=== PATIENT | female | born 1985 | race Caucasian/White ===

== ENCOUNTER → 2018-07-01 | Outpatient (CLI) | payer OTHER ==
[~2018-07-01] MED LIST: ALBU90OI INH; AMOX500 PO; ANTIDEPRESSANT; BUPR100; BUPR75; CIPR500 PO; CRUTCH3 USE; CYCL10 PO; Compazine10 MG PO; DICYCLOMINE PO; DULO30 PO; EXCEDRINE MIGRAINE; FROVA; HYDACE5 PO; HYDCOR10 PO; HYDCOR20 PO; IBUP200; ISODICACE; KETO10 PO; LEVSOD100 PO; LEVSOD125 PO; LEVSOD175 PO; LEVSOD25; MECL25 PO; METO10 PO; METO100ER; METO100ER PO; METPHE20ER PO; METPHE5 PO; NAPR375 PO; NAPR500 PO; NAPR550 PO; NORT10 PO; OMEP20ER PO; ONDA4ODT MM; OSEL75CA PO; OXYACE5T PO; PENVK500 PO; PHENA100 PO; PROACE100 PO; PROM25 PO; PROP120ER; PROP120ER PO; PROP50; RXNAPNA550 PO; RXONDA4ODT MM; RXPROACE PO; RXPROM25 PO; RXTRAM50 PO; SERT100 PO; SULTRIDS PO; SUMA25 PO; Seasonique 0.11 EACH PO; Synthroid150 MCG PO; TRAM50 PO; TRAZ100; Ultram50 MG PO; Veetids 500500 MG PO; Zofran Odt4 MG SL
[2018-07-05 15:06] LABS: HPV 16 Negative (Negative); HPV 18 Negative (Negative); HPV OTHER HR TYPES Negative (Negative)
== END | disposition home or self-care (01) ==
LOC: LAB SHORT 18:33 → LAB 18:33
PROVIDERS: Nurse Practitioner Women's Health
DX: Z12.4 Encounter for screening for malignant neoplasm of cervix (principal); Z91.89 Other specified personal risk factors, not elsewhere classified
CPT/HCPCS: 87624; G0123

== ENCOUNTER 2023-06-15 18:25 | Emergency (ER) | payer BC ==
[~2023-06-15] VITALS: Ht 160 cm; Wt 91.2 kg
[~2023-06-15 18:25] MED LIST changes: -LEVOTHYROXINE75 MC9 PO
[2023-06-15 19:44] LABS: Hematocrit 30.2 % (33.0-51.0); Hemoglobin 9.1 g/dL (11.5-16.0); Mean Corpuscular HGB Conc 30.1 g/dL (31.5-36.5); Mean Corpuscular Volume 83 fL (80-100); Mean Platelet Volume 9.1 fL (9.1-12.4); Platelet Count 357 K/mm3 (150-400); RDW Coefficient Variation 19.3 % (11.7-14.2); RDW Standard Deviation 58.8 fL (35.1-46.3); Red Blood Cell Count 3.64 M/mm3 (3.80-5.20); White Blood Cell Count 10.28 K/mm3 (4.00-11.30)
[2023-06-15 20:02] LABS: BASOPHILS PERCENT MAN 1 % (0-2); EOSINOPHILS ABSOLUTE MAN 0.51 K/mm3 (0.00-0.68); EOSINOPHILS PERCENT MAN 5 % (0-6); LYMPHOCYTES ABSOLUTE MAN 4.42 K/mm3 (0.84-5.20); LYMPHOCYTES PERCENT MAN 43 % (21-46); MONOCYTES ABSOLUTE MAN 0.41 K/mm3 (0.16-1.47); MONOCYTES PERCENT MAN 4 % (4-13); MYELOCYTE PERCENT MAN 1 % (0-0); NEUTROPHILS ABSOLUTE MAN 4.72 K/mm3 (1.96-9.15); SEG NEUTROPHILS PERCENT MAN 46 % (41-73); TOTAL CELLS COUNTED 100
[2023-06-15 20:54] LABS: Albumin, Blood 3.7 g/dL (3.4-5.0); Albumin/Globulin Ratio 0.9 (0.8-1.8); Bilirubin, Total 0.2 mg/dL (0.1-1.0); Bun/Creatinine Ratio 8.2 (12.0-20.0); Creatinine, Blood 0.98 mg/dL (0.40-1.00); Potassium, Blood 3.8 mmol/L (3.5-5.5); Thyroid Stimulating Hormone 85.9 uIU/mL (0.360-4.800); Total Protein, Blood 7.7 g/dL (6.4-8.2)
[2023-06-15] MEDS ORDERED: LEVOTHYROXINE75 MC9 PO (21:09)
[2023-06-15 21:10] LABS: Free Thyroxine 0.15 ng/dL (0.70-1.60); Magnesium, Blood 2.1 mg/dL (1.6-2.4)
[2023-06-15] MEDS ORDERED: NS 1,000 ML IV SCH (21:10)
[2023-06-15] MEDS ORDERED: Levothyroxine Sodium 100 MCG Vial IV ONE (21:10)
[2023-06-15] MEDS ORDERED: Sod Ferric Gluc Complx/Sucrose 125 MG in NS 100 ML IV ONE (22:05)
[2023-06-15 22:30] VITALS: BP 94/74
[2023-06-17 11:09] LABS: FERRITIN 6 ng/mL (15-150)
[2023-06-17 22:10] LABS: IRON BIND.CAP.(TIBC) 401 ug/dL (250-450); IRON SATURATION 5 % (15-55); IRON, SERUM 20 ug/dL (27-159); UIBC 381 ug/dL (131-425)
== END 2023-06-15 23:37 | disposition home or self-care (01) ==
LOC: ER 18:25
PROVIDERS: Physician Assistant; Student in an Organized Health Care Education/Training Program
DX: E03.9 Hypothyroidism, unspecified (principal); D64.9 Anemia, unspecified; F90.9 Attention-deficit hyperactivity disorder, unspecified type; F17.210 Nicotine dependence, cigarettes, uncomplicated; Z79.899 Other long term (current) drug therapy; Z79.890 Hormone replacement therapy; D50.9 Iron deficiency anemia, unspecified; R53.83 Other fatigue
CPT/HCPCS: 71046; 80053; 82728; 83540; 83550; 83735; 84439; 84443; 85025; 93005; 93010; 96361; 96365; 96375; 99285-25; J2916; J7030

== ENCOUNTER → 2023-06-15 | Outpatient (CLI) | payer OTHER ==
[~2023-06-15] MED LIST changes: +BENZ100A PO; +GUAI600T33 PO; +LEVOTHYROXINE75 MC9 PO; +ONDA4 PO
[2023-06-15 15:44] LABS: BASOPHILS ABSOLUTE AUTO 0.12 K/mm3 (0.00-0.23); BASOPHILS PERCENT AUTO 1 % (0-2); EOSINOPHILS ABSOLUTE AUTO 0.28 K/mm3 (0.00-0.68); EOSINOPHILS PERCENT AUTO 3 % (0-6); Hematocrit 32.3 % (33.0-51.0); Hemoglobin 9.7 g/dL (11.5-16.0); IMMATURE GRAN ABSOLUTE AUTO 0.05 K/mm3 (0.00-0.10); IMMATURE GRAN PERCENT AUTO 1 % (0-1); LYMPHOCYTES ABSOLUTE AUTO 3.26 K/mm3 (0.84-5.20); LYMPHOCYTES PERCENT AUTO 38 % (21-46); MONOCYTES ABSOLUTE AUTO 0.39 K/mm3 (0.16-1.47); MONOCYTES PERCENT AUTO 5 % (4-13); Mean Corpuscular HGB 24.9 pg (26.0-34.0); Mean Corpuscular Volume 83 fL (80-100); Mean Platelet Volume 9.4 fL (9.1-12.4); NEUTROPHILS ABSOLUTE AUTO 4.39 K/mm3 (1.96-9.15); NEUTROPHILS PERCENT AUTO 52 % (41-73); Platelet Count 413 K/mm3 (150-400); RDW Coefficient Variation 19.6 % (11.7-14.2); RDW Standard Deviation 58.9 fL (35.1-46.3); Red Blood Cell Count 3.89 M/mm3 (3.80-5.20); White Blood Cell Count 8.49 K/mm3 (4.00-11.30)
[2023-06-15 16:19] LABS: Free Thyroxine 0.19 ng/dL (0.70-1.60)
[2023-06-15 16:46] LABS: Thyroid Stimulating Hormone 94.1 uIU/mL (0.360-4.800)
[2023-06-16 12:38] LABS: Albumin, Blood 4.3 g/dL (3.4-5.0); Bilirubin, Total 0.3 mg/dL (0.1-1.0); Bun/Creatinine Ratio 7.9 (12.0-20.0); Calcium, Blood 9.2 mg/dL (8.5-10.1); Creatinine, Blood 1.01 mg/dL (0.40-1.00); Globulin, Blood 4.1 g/dL (2.2-4.0); Potassium, Blood 3.8 mmol/L (3.5-5.5); Total Protein, Blood 8.4 g/dL (6.4-8.2)
== END | disposition home or self-care (01) ==
LOC: LAB SHORT 12:40
PROVIDERS: Family Medicine
DX: E03.9 Hypothyroidism, unspecified (principal); D50.9 Iron deficiency anemia, unspecified; R53.83 Other fatigue
CPT/HCPCS: 80053; 84439; 84443; 85025

== ENCOUNTER 2023-06-27 11:37 | Emergency (ER) | payer BC ==
[~2023-06-27] VITALS: Ht 160 cm; Wt 90.7 kg
[~2023-06-27 11:37] MED LIST changes: +LEVOTHYROXINE75 MC9 PO
[2023-06-27] MEDS ORDERED: OxyCODONE 5 mg/Acetamin 325 mg TABLET PO ONE (12:25)
[2023-06-27] MEDS ORDERED: Ondansetron HCl 2 MG / ML 2ML Vial IV ONE (12:25)
[2023-06-27 12:40] LABS: BASOPHILS ABSOLUTE AUTO 0.14 K/mm3 (0.00-0.23); BASOPHILS PERCENT AUTO 1 % (0-2); EOSINOPHILS ABSOLUTE AUTO 0.24 K/mm3 (0.00-0.68); EOSINOPHILS PERCENT AUTO 2 % (0-6); Hematocrit 31.3 % (33.0-51.0); Hemoglobin 9.6 g/dL (11.5-16.0); IMMATURE GRAN ABSOLUTE AUTO 0.08 K/mm3 (0.00-0.10); IMMATURE GRAN PERCENT AUTO 1 % (0-1); LYMPHOCYTES ABSOLUTE AUTO 2.77 K/mm3 (0.84-5.20); LYMPHOCYTES PERCENT AUTO 25 % (21-46); MONOCYTES ABSOLUTE AUTO 0.65 K/mm3 (0.16-1.47); MONOCYTES PERCENT AUTO 6 % (4-13); Mean Corpuscular HGB 26.1 pg (26.0-34.0); Mean Corpuscular HGB Conc 30.7 g/dL (31.5-36.5); Mean Corpuscular Volume 85 fL (80-100); Mean Platelet Volume 9.3 fL (9.1-12.4); NEUTROPHILS ABSOLUTE AUTO 7.33 K/mm3 (1.96-9.15); NEUTROPHILS PERCENT AUTO 66 % (41-73); Platelet Count 306 K/mm3 (150-400); RDW Coefficient Variation 20.8 % (11.7-14.2); Red Blood Cell Count 3.68 M/mm3 (3.80-5.20); White Blood Cell Count 11.21 K/mm3 (4.00-11.30)
[2023-06-27 13:05] LABS: Bilirubin, Total 0.2 mg/dL (0.1-1.0); Bun/Creatinine Ratio 9.9 (12.0-20.0); Calcium, Blood 8.9 mg/dL (8.5-10.1); Creatinine, Blood 0.81 mg/dL (0.40-1.00); Globulin, Blood 4.2 g/dL (2.2-4.0); Potassium, Blood 3.9 mmol/L (3.5-5.5); Total Protein, Blood 8.2 g/dL (6.4-8.2)
[2023-06-27] MEDS ORDERED: FentaNYL Citrate 50 MCG/ML 2 ML Injection IV ONE (13:30)
[2023-06-27] MEDS ORDERED: Ampicillin Sod/Sulbactam Sod 3 GM in NS 100 ML IV ONE (13:35)
[2023-06-27] MEDS ORDERED: ONDA4ODT MM (14:13)
[2023-06-27] MEDS ORDERED: AMOCLA875 PO (14:13)
[2023-06-27] MEDS ORDERED: Percocet 5-3251 EACH PO (14:13)
[2023-06-27 14:15] VITALS: BP 102/71
== END 2023-06-27 14:34 | disposition home or self-care (01) ==
LOC: ER 11:37
PROVIDERS: Student in an Organized Health Care Education/Training Program
DX: L03.211 Cellulitis of face (principal); K04.7 Periapical abscess without sinus; E03.9 Hypothyroidism, unspecified; F17.210 Nicotine dependence, cigarettes, uncomplicated; Z88.8 Allergy status to other drugs, medicaments and biological substances
CPT/HCPCS: 70487; 80053; 85025; 96365-59; 96375-59; 99284-25; A9270; J0295; J2405; J3010; Q9967

== ENCOUNTER 2023-08-30 15:42 | Emergency (ER) | payer BC ==
[~2023-08-30] VITALS: Ht 160 cm; Wt 90.7 kg
[~2023-08-30 15:42] MED LIST changes: +AMOCLA875 PO; +Percocet 5-3251 EACH PO
[2023-08-30 17:59] LABS: BASOPHILS ABSOLUTE AUTO 0.13 K/mm3 (0.00-0.23); BASOPHILS PERCENT AUTO 1 % (0-2); EOSINOPHILS ABSOLUTE AUTO 0.31 K/mm3 (0.00-0.68); EOSINOPHILS PERCENT AUTO 3 % (0-6); Hematocrit 31.4 % (33.0-51.0); Hemoglobin 9.6 g/dL (11.5-16.0); IMMATURE GRAN ABSOLUTE AUTO 0.13 K/mm3 (0.00-0.10); IMMATURE GRAN PERCENT AUTO 1 % (0-1); LYMPHOCYTES ABSOLUTE AUTO 3.04 K/mm3 (0.84-5.20); LYMPHOCYTES PERCENT AUTO 30 % (21-46); MONOCYTES ABSOLUTE AUTO 0.78 K/mm3 (0.16-1.47); MONOCYTES PERCENT AUTO 8 % (4-13); Mean Corpuscular HGB 26.1 pg (26.0-34.0); Mean Corpuscular HGB Conc 30.6 g/dL (31.5-36.5); Mean Corpuscular Volume 85 fL (80-100); Mean Platelet Volume 8.7 fL (9.1-12.4); NEUTROPHILS ABSOLUTE AUTO 5.77 K/mm3 (1.96-9.15); NEUTROPHILS PERCENT AUTO 57 % (41-73); Platelet Count 371 K/mm3 (150-400); RDW Coefficient Variation 18.4 % (11.7-14.2); RDW Standard Deviation 54.8 fL (35.1-46.3); Red Blood Cell Count 3.68 M/mm3 (3.80-5.20); White Blood Cell Count 10.16 K/mm3 (4.00-11.30)
[2023-08-30 18:18] LABS: Albumin, Blood 3.6 g/dL (3.4-5.0); Albumin/Globulin Ratio 0.9 (0.8-1.8); Bilirubin, Total 0.2 mg/dL (0.1-1.0); Bun/Creatinine Ratio 12.3 (12.0-20.0); Calcium, Blood 8.7 mg/dL (8.5-10.1); Creatinine, Blood 0.73 mg/dL (0.40-1.00); Globulin, Blood 3.8 g/dL (2.2-4.0); Potassium, Blood 3.8 mmol/L (3.5-5.5); Total Protein, Blood 7.4 g/dL (6.4-8.2)
[2023-08-30 18:37] VITALS: BP 117/83
[2023-08-30] MEDS ORDERED: EUTHYROX100 MC1 PO (18:39)
[2023-08-30] MEDS ORDERED: ValACYClovir HCL 500 MG Tab PO ONE (19:00)
[2023-08-30] MEDS ORDERED: PredniSONE 20 MG Tab PO ONE (19:00)
[2023-08-30] MEDS ORDERED: PRED20 PO (19:30)
[2023-08-30] MEDS ORDERED: VALACYCLOVIR1000 MG PO (19:30)
== END 2023-08-30 19:41 | disposition home or self-care (01) ==
LOC: ER 15:42
PROVIDERS: Student in an Organized Health Care Education/Training Program
DX: G51.0 Bell's palsy (principal); D64.9 Anemia, unspecified; E03.9 Hypothyroidism, unspecified; G43.909 Migraine, unspecified, not intractable, without status migrainosus; F17.210 Nicotine dependence, cigarettes, uncomplicated; Z79.899 Other long term (current) drug therapy; Z88.8 Allergy status to other drugs, medicaments and biological substances
CPT/HCPCS: 70450; 80053; 85025; 99284-25; A9270; J7512

== ENCOUNTER 2023-09-06 20:00 | Observation (INO) | payer BC ==
[~2023-09-06] VITALS: Ht 160 cm; Wt 95.7 kg
[~2023-09-06 20:00] MED LIST changes: +EUTHYROX100 MC1 PO; +PRED20 PO; +VALACYCLOVIR1000 MG PO
[2023-09-06 20:43] LABS: Mean Corpuscular HGB 27.3 pg (26.0-34.0); Mean Corpuscular HGB Conc 31.4 g/dL (31.5-36.5); Mean Corpuscular Volume 87 fL (80-100); Mean Platelet Volume 8.9 fL (9.1-12.4); Platelet Count 341 K/mm3 (150-400); RDW Coefficient Variation 21.9 % (11.7-14.2); RDW Standard Deviation 65.7 fL (35.1-46.3); Red Blood Cell Count 4.03 M/mm3 (3.80-5.20); White Blood Cell Count 16.32 K/mm3 (4.00-11.30)
[2023-09-06 20:57] LABS: International Normalized Ratio 0.92; Prothrombin Time Results 9.9 Sec (9.7-11.5)
[2023-09-06 21:17] LABS: BAND PERCENT MAN 1 % (0-8); BASOPHILS PERCENT MAN 0 % (0-2); EOSINOPHILS PERCENT MAN 0 % (0-6); LYMPHOCYTES % ATYPICAL MANUAL 3 % (0-0); LYMPHOCYTES ABSOLUTE MAN 5.71 K/mm3 (0.84-5.20); LYMPHOCYTES PERCENT MAN 32 % (21-46); METAMYELOCYTE ABSOLUTE MAN 0.16 K/mm3 (0.00-0.00); METAMYELOCYTE PERCENT MAN 1 % (0-0); MONOCYTES PERCENT MAN 8 % (4-13); MYELOCYTE ABSOLUTE MAN 0.32 K/mm3 (0.00-0.00); MYELOCYTE PERCENT MAN 2 % (0-0); NEUTROPHILS ABSOLUTE MAN 8.81 K/mm3 (1.96-9.15); SEG NEUTROPHILS PERCENT MAN 53 % (41-73); TOTAL CELLS COUNTED 100
[2023-09-06 21:20] LABS: Albumin, Blood 3.7 g/dL (3.4-5.0); Bilirubin, Total 0.3 mg/dL (0.1-1.0); Bun/Creatinine Ratio 22.4 (12.0-20.0); Calcium, Blood 8.4 mg/dL (8.5-10.1); Creatinine, Blood 0.76 mg/dL (0.40-1.00); Globulin, Blood 3.8 g/dL (2.2-4.0); Potassium, Blood 3.4 mmol/L (3.5-5.5); Total Protein, Blood 7.5 g/dL (6.4-8.2)
[2023-09-06] MEDS ORDERED: Ondansetron HCl 2 MG / ML 2ML Vial IV PRN (22:20)
[2023-09-07] MEDS ORDERED: Acetaminophen 325 MG TABLET PO PRN (01:00)
[2023-09-07] MEDS ORDERED: TraMADol HCl 50 MG Tab PO PRN (01:00)
[2023-09-07] MEDS ORDERED: EUTHYROX100 MCG PO (03:29)
[2023-09-07 04:05] LABS: Hematocrit 32.5 % (33.0-51.0); Hemoglobin 10.3 g/dL (11.5-16.0); Mean Corpuscular HGB 27.3 pg (26.0-34.0); Mean Corpuscular HGB Conc 31.7 g/dL (31.5-36.5); Mean Corpuscular Volume 86 fL (80-100); Mean Platelet Volume 9.3 fL (9.1-12.4); Platelet Count 335 K/mm3 (150-400); RDW Coefficient Variation 21.7 % (11.7-14.2); RDW Standard Deviation 63.8 fL (35.1-46.3); Red Blood Cell Count 3.77 M/mm3 (3.80-5.20)
[2023-09-07 04:35] LABS: Albumin, Blood 3.5 g/dL (3.4-5.0); Bilirubin, Total 0.4 mg/dL (0.1-1.0); Bun/Creatinine Ratio 22.3 (12.0-20.0); Calcium, Blood 8.5 mg/dL (8.5-10.1); Creatinine, Blood 0.67 mg/dL (0.40-1.00); Globulin, Blood 3.5 g/dL (2.2-4.0); Potassium, Blood 3.6 mmol/L (3.5-5.5)
[2023-09-07 04:40] LABS: Free Thyroxine 1.07 ng/dL (0.70-1.60); Thyroid Stimulating Hormone 12.6 uIU/mL (0.360-4.800); Triiodothyronine, Free 1.64 pg/mL (2.18-3.98)
[2023-09-07 05:01] LABS: BAND PERCENT MAN 1 % (0-8); BASOPHILS ABSOLUTE MAN 0.14 K/mm3 (0.00-0.23); BASOPHILS PERCENT MAN 1 % (0-2); EOSINOPHILS ABSOLUTE MAN 0.28 K/mm3 (0.00-0.68); EOSINOPHILS PERCENT MAN 2 % (0-6); LYMPHOCYTES % ATYPICAL MANUAL 2 % (0-0); LYMPHOCYTES ABSOLUTE MAN 4.76 K/mm3 (0.84-5.20); LYMPHOCYTES PERCENT MAN 32 % (21-46); MONOCYTES ABSOLUTE MAN 1.12 K/mm3 (0.16-1.47); MONOCYTES PERCENT MAN 8 % (4-13); MYELOCYTE ABSOLUTE MAN 0.28 K/mm3 (0.00-0.00); MYELOCYTE PERCENT MAN 2 % (0-0); NEUTROPHILS ABSOLUTE MAN 7.42 K/mm3 (1.96-9.15); SEG NEUTROPHILS PERCENT MAN 52 % (41-73); TOTAL CELLS COUNTED 100
[2023-09-07] MEDS ORDERED: Levothyroxine Sodium 0.1 MG Tab PO SCH (06:00)
[2023-09-07] MEDS ORDERED: Heparin Sodium,Porcine 5,000 UNIT/0.5 ML SDV SC SCH (09:00)
[2023-09-07] MEDS ORDERED: Ondansetron HCl 2 MG / ML 2ML Vial ONE (09:57)
[2023-09-07] MEDS ORDERED: Lactated Ringer's 1,000 ML IV ONE (09:57)
[2023-09-07] MEDS ORDERED: Ondansetron HCl 2 MG / ML 2ML Vial IV ONE ×2 (10:00→22:20)
[2023-09-07] MEDS ORDERED: Lactated Ringer's 1,000 ML IV SCH (10:00)
[2023-09-07] MEDS ORDERED: Ondansetron HCl 2 MG / ML 2ML Vial IV PRN (10:00)
[2023-09-07 13:25] VITALS: BP 103/67
[2023-09-07] MEDS ORDERED: VITAMIN D5000 UNIT PO (13:31)
[2023-09-07] MEDS ORDERED: B-12 COMPL1000 MCG/2 IM (13:31)
--- NOTE | 2023-09-07 15:07 | NUR ---
THE PT WAS A NEW ADMIT THIS SHIFT FROM AN ER HOLD ROOM. REPORT FROM MARI THE PT IS A&OX4, CALLS APPROPRIATELY, AND CAN MAKE HER NEEDS KNOWN. SHE DOES HAVE IMPAIRED SPEECH WITH SLOWNESS AND A STUTTER. SHE WAS DIAGNOSED THIS MONTH WITH BELLS PALSY AND HAS BEEN RECIEVING ANTIVIRALS AND STERIODS FROM HER PCP. TODAY WOULD HAVE BEEN THE LAST DAY OF HER MEDICAITON COARSE. HER VS REMAIN STABLE. THE PT STATES HER BASELINE BP IS SOFT. ON TELE SHE IS SR/SB 50'S-60'S. THE PT HAD AN MRI THIS MORNING WHILE HOLDING IN THE ER. DR. MIKE JUST CAME TO THE BEDSIDE AND SAID THE MRI WAS CLEAR. LONG THE PT PASSES THE SPEECH EVALUATION THEN SHE CAN DISCHARGE AND FOLLOW UP WITH HER PCP AND SHE NEEDS A NEUROLOGY CONSULT. AWAITING FOR SPEECH TO FINISH HER EVALUATION. SEE NOTES FOR UPDATES.
[2023-09-07] MEDS ORDERED: Prednisone10 MG PO (16:01)
[2023-09-07 16:02] VITALS: BP 103/58
[2023-09-07] MEDS ORDERED: LIOT5 PO (16:02)
[2023-09-07] MEDS ORDERED: TRAM50 PO (16:02)
[2023-09-07] MEDS ORDERED: ONDA4ODT MM (16:03)
--- NOTE | 2023-09-07 16:37 | NUR ---
THE PT WAS CLEARED FROM SPEECH THERAPY WITH A SOFT BITE SIZED DIET. SHE D/C'D AROUND 1630. I WENT OVER ALL DISCHARGE INSTRUCTIONS WITH THE PT AND HER AND ANSWERED THEIR QUESTIONS. VITAL SIGNS REMAINED STABLE. THE PT'S MEDICATIONS WERE SENT THE [facility], AND SHE WAS GIVEN A HARD SCRIPT FOR ULTRAM. NO FURTHER NOTES.
[2023-09-08] MEDS ORDERED: Liothyronine Sodium 5 MCG Tab PO SCH (06:00)
[2023-09-08] MEDS ORDERED: Levothyroxine Sodium 0.112 MG Tab PO SCH (06:00)
== END 2023-09-07 16:30 | disposition home or self-care (01) ==
LOC: ER 20:00 → PCU 20:01 → ERHOLD 09-07 00:59 → PCU 09-07 00:59 → ER 09-07 00:59 → ERHOLD 09-07 13:16 → PCU 09-07 13:16
PROVIDERS: Family Medicine Adult Medicine; Student in an Organized Health Care Education/Training Program; ADMIT Student in an Organized Health Care Education/Training Program
DX: G51.0 Bell's palsy (principal); E03.9 Hypothyroidism, unspecified; R47.1 Dysarthria and anarthria; D72.829 Elevated white blood cell count, unspecified; G43.909 Migraine, unspecified, not intractable, without status migrainosus; F90.9 Attention-deficit hyperactivity disorder, unspecified type; E55.9 Vitamin D deficiency, unspecified; Z88.8 Allergy status to other drugs, medicaments and biological substances; Z79.899 Other long term (current) drug therapy
CPT/HCPCS: 70496; 70498; 70544; 70551; 80053; 84439; 84443; 84481; 85025; 85384; 85610; 92610; A9270; G0378; J1644; J2405; J7120; Q9967

== ENCOUNTER 2023-10-29 09:03 | Inpatient (IN) | payer BC ==
[2023-10-29] VITALS (14 sets, daily range): BP systolic 98–130; BP diastolic 61–103
[~2023-10-29] VITALS: Ht 160 cm; Wt 98.0 kg
[~2023-10-29 09:03] MED LIST changes: +B-12 COMPL1000 MCG/2 IM; +CeFAZolin Sodium 2,000 MG in NS 100 ML IV SCH; +EUTHYROX100 MCG PO; +LIOT5 PO; +Lactated Ringer's 1,000 ML IV SCH; +Prednisone10 MG PO; +VITAMIN D5000 UNIT PO
[2023-10-29] MEDS ORDERED: Bupivacaine 0.5% HCl 5 MG/ML 30MLVIAL ONE (10:25)
[2023-10-29] MEDS ORDERED: EpiNEPhrine 1 MG/1 ML 1ML Vial ONE (10:25)
[2023-10-29] MEDS ORDERED: propofoL 20 ML IV ONE (10:37)
[2023-10-29] MEDS ORDERED: FentaNYL Citrate 50 MCG/ML 2 ML Injection ONE ×3 (10:38→12:30)
[2023-10-29] MEDS ORDERED: Dexamethasone Sod Phos 10 MG/ML 1ML VIAL ONE (10:54)
[2023-10-29] MEDS ORDERED: Rocuronium Bromide 10 MG/ML 5ML Injection IV ONE (11:51)
[2023-10-29] MEDS ORDERED: Tranexamic Acid 100 ML IV ONE (13:29)
[2023-10-29] MEDS ORDERED: Tranexamic Acid 1,000 MG in NS 100 ML IV SCH (13:35)
--- NOTE | 2023-10-29 14:12 | NUR ---
10/29/23 1412 SUSAN GEE 1 UNIT PLATELETS AND 1 UNIT LIQUID PLASMA GIVEN FOR INTRAOP [id number] BY ANESTHESIA PER SURGEON AT [id number]. SEE ANETHESIA RECORD.
[2023-10-29] MEDS ORDERED: ePHEDrine Sulfate 50 MG/ML 1ML Injection ONE (14:26)
[2023-10-29] MEDS ORDERED: Ondansetron HCl 2 MG / ML 2ML Vial ONE (14:30)
[2023-10-29] MEDS ORDERED: Sugammadex Sodium 200 MG/2ML SDV (100 MG/ML) ONE (14:31)
[2023-10-29] MEDS ORDERED: propofoL 40 ML IV ONE (14:51)
[2023-10-29] MEDS ORDERED: FentaNYL Citrate 50 MCG/ML 2 ML Injection IV PRN (15:05)
[2023-10-29] MEDS ORDERED: DiphenhydrAMINE HCL 25 MG Cap PO PRN (15:05)
[2023-10-29] MEDS ORDERED: Lactated Ringer's 1,000 ML IV SCH (15:05)
[2023-10-29] MEDS ORDERED: Ondansetron HCl 2 MG / ML 2ML Vial IV PRN (15:05)
[2023-10-29] MEDS ORDERED: propofoL 100 ML IV SCH (15:25)
--- NOTE | 2023-10-29 15:40 | NUR ---
ADMIT FROM OR PT ARRIVED TO ICU 1 AT 1508 VIA BED WITH ETT IN PLACE AND ANESTHESIA BAGGING PT. PT CONNECTED TO VENT BY RT ALICE ON PRESSURE SUPPORT SETTINGS. PT WITH IV FLUID BOLUS AND PROPOFOL AT 30 MCG/KG/MIN INFUSING UPON ARRIVAL. PT HYPOTENSIVE UPON ARRIVAL. 150 MCG PHENYLEPHRINE IV PUSH BY ANESTHESIA. VITAL SIGNS STABLE. DR RAMIREZ IN TO SEE PT, THEN LEFT. PT TURNED TO ASSESS SKIN WITH MARVIN RN. PT THEN BECAME RESTLESS AND STARTED THRASHING IN BED. THIS RN AND RT ALICE ATTEMPTING TO SECURE ETT WITH HOLISTER. 50 MCG IV FENTANYL GIVEN AT THIS TIME. PT THRASHING IN BED ESCALATED AND ETT SLIPPING IN TAPE RT AND THIS RN ATTEMPTING TO SECURE ETT. ETT CAME OUT AT 1526 BY PT PT THRASHED HEAD SIDE TO SIDE AND SAT UP IN BED. PT WITH CLEAR BREATH SOUNDS AND SPO2 REMAINED >94% ON ROOM AIR. PT DROWSEY S/P FENTANYL, BUT SPEECH IS CLEARING AND PT DENIES SOB OR DIFFICULTY BREATHING. DR RAMIREZ AND DR BERRY NOTIFIED OF PT SELF EXTUBATION. PT ALERT AND TALKING TO STAFF AT THIS TIME. PT SPOUSE AT BEDSIDE AT THIS TIME. NO VAGINAL BLEEDING OR BLEEDING FROM LAP SITES NOTED. WILL CONTINUE TO MONITOR.
[2023-10-29] MEDS ORDERED: OxyCODONE 5 mg/Acetamin 325 mg TABLET PO PRN (17:25)
[2023-10-29 18:31] LABS: BASOPHILS ABSOLUTE AUTO 0.04 K/mm3 (0.00-0.23); BASOPHILS PERCENT AUTO 0 % (0-2); EOSINOPHILS PERCENT AUTO 0 % (0-6); Hematocrit 29.4 % (33.0-51.0); Hemoglobin 9.9 g/dL (11.5-16.0); IMMATURE GRAN ABSOLUTE AUTO 0.12 K/mm3 (0.00-0.10); IMMATURE GRAN PERCENT AUTO 1 % (0-1); LYMPHOCYTES ABSOLUTE AUTO 1.11 K/mm3 (0.84-5.20); LYMPHOCYTES PERCENT AUTO 7 % (21-46); MONOCYTES ABSOLUTE AUTO 0.13 K/mm3 (0.16-1.47); MONOCYTES PERCENT AUTO 1 % (4-13); Mean Corpuscular HGB 30.7 pg (26.0-34.0); Mean Corpuscular HGB Conc 33.7 g/dL (31.5-36.5); Mean Corpuscular Volume 91 fL (80-100); Mean Platelet Volume 9.6 fL (9.1-12.4); NEUTROPHILS ABSOLUTE AUTO 15.21 K/mm3 (1.96-9.15); NEUTROPHILS PERCENT AUTO 92 % (41-73); Platelet Count 281 K/mm3 (150-400); RDW Coefficient Variation 18.9 % (11.7-14.2); RDW Standard Deviation 62.8 fL (35.1-46.3); Red Blood Cell Count 3.22 M/mm3 (3.80-5.20); White Blood Cell Count 16.61 K/mm3 (4.00-11.30)
--- NOTE | 2023-10-29 18:41 | NUR ---
SHIFT SUMMARY NO ACUTE CHANGES AT THIS TIME. PT REMAINS AWAKE, ALERT, AND ORIENTED. VITALS SIGNS STABLE. PT MED FOR ABD/CHEST PAIN PER EMAR. PT SPOUSE AT BEDSIDE. NO POST SURGICAL BLEEDING NOTED. PT UP TO TOILET TO VOID WITH SBA. WILL CONTINUE TO MONITOR AND REPORT OFF TO ONCOMING RN.
[2023-10-29 19:03] LABS: Platelet Function Col/Epi >300 sec (75-165)
[2023-10-29 19:04] LABS: Platelet Function Col/ADP 149 sec (56-115)
--- NOTE | 2023-10-29 21:09 | NUR ---
TRANSFER PT IS A NEW ICU TRANSFER. ARRIVED A/OX4, ON RA, C/O 08/02 LOWER ABD PAIN AND CRAMPING. X3 LAP SITES CLOSED WITH STERI STRIPS. PT NOTED TO HAVE A STUTTER, SHE REPORTS THAT SHE HAS BEEN SEEN AT [place] AND HAD PREVIOUS STROKE WORK UPS. REPORTS OVERALL FINDINGS ARE A SECONDARY NERVOUS SYSTEM ISSUE. PT ALSO ENDORSES CHRONIC L SIDED WEAKNESSES. SLIGHT DEFICIT NOTED. PT ALSO REPORTS R SIDED THROT DISCOMFORT, ABLE TO SWALLOW APPROPRITELY AND REPORTS NO DIFFICULTY BREATHING. VSS. MEDICATED FOR PAIN PER EMAR.
[2023-10-29 22:57] LABS: BASOPHILS ABSOLUTE AUTO 0.01 K/mm3 (0.00-0.23); BASOPHILS PERCENT AUTO 0 % (0-2); EOSINOPHILS PERCENT AUTO 0 % (0-6); Hematocrit 27.9 % (33.0-51.0); Hemoglobin 9.6 g/dL (11.5-16.0); IMMATURE GRAN ABSOLUTE AUTO 0.09 K/mm3 (0.00-0.10); IMMATURE GRAN PERCENT AUTO 1 % (0-1); LYMPHOCYTES ABSOLUTE AUTO 1.28 K/mm3 (0.84-5.20); LYMPHOCYTES PERCENT AUTO 10 % (21-46); MONOCYTES PERCENT AUTO 2 % (4-13); Mean Corpuscular HGB 30.8 pg (26.0-34.0); Mean Corpuscular HGB Conc 34.4 g/dL (31.5-36.5); Mean Corpuscular Volume 89 fL (80-100); Mean Platelet Volume 9.3 fL (9.1-12.4); NEUTROPHILS ABSOLUTE AUTO 11.64 K/mm3 (1.96-9.15); NEUTROPHILS PERCENT AUTO 87 % (41-73); Platelet Count 287 K/mm3 (150-400); RDW Standard Deviation 61.4 fL (35.1-46.3); Red Blood Cell Count 3.12 M/mm3 (3.80-5.20); White Blood Cell Count 13.32 K/mm3 (4.00-11.30)
[2023-10-30 03:25] VITALS: BP 111/62
[2023-10-30 04:12] VITALS: BP 101/66
[2023-10-30 05:33] LABS: BASOPHILS ABSOLUTE AUTO 0.03 K/mm3 (0.00-0.23); BASOPHILS PERCENT AUTO 0 % (0-2); EOSINOPHILS PERCENT AUTO 0 % (0-6); Hematocrit 26.3 % (33.0-51.0); Hemoglobin 8.8 g/dL (11.5-16.0); IMMATURE GRAN ABSOLUTE AUTO 0.12 K/mm3 (0.00-0.10); IMMATURE GRAN PERCENT AUTO 1 % (0-1); LYMPHOCYTES ABSOLUTE AUTO 1.75 K/mm3 (0.84-5.20); LYMPHOCYTES PERCENT AUTO 11 % (21-46); MONOCYTES ABSOLUTE AUTO 0.92 K/mm3 (0.16-1.47); MONOCYTES PERCENT AUTO 6 % (4-13); Mean Corpuscular HGB 30.3 pg (26.0-34.0); Mean Corpuscular HGB Conc 33.5 g/dL (31.5-36.5); Mean Corpuscular Volume 91 fL (80-100); Mean Platelet Volume 9.9 fL (9.1-12.4); NEUTROPHILS ABSOLUTE AUTO 13.21 K/mm3 (1.96-9.15); NEUTROPHILS PERCENT AUTO 83 % (41-73); Platelet Count 288 K/mm3 (150-400); RDW Coefficient Variation 19.1 % (11.7-14.2); RDW Standard Deviation 63.3 fL (35.1-46.3); White Blood Cell Count 16.03 K/mm3 (4.00-11.30)
[2023-10-30 07:09] VITALS: BP 102/61
[2023-10-30 12:19] LABS: BASOPHILS ABSOLUTE AUTO 0.05 K/mm3 (0.00-0.23); BASOPHILS PERCENT AUTO 0 % (0-2); EOSINOPHILS PERCENT AUTO 0 % (0-6); Hematocrit 27.1 % (33.0-51.0); Hemoglobin 9.2 g/dL (11.5-16.0); IMMATURE GRAN ABSOLUTE AUTO 0.13 K/mm3 (0.00-0.10); IMMATURE GRAN PERCENT AUTO 1 % (0-1); LYMPHOCYTES ABSOLUTE AUTO 2.69 K/mm3 (0.84-5.20); LYMPHOCYTES PERCENT AUTO 15 % (21-46); MONOCYTES ABSOLUTE AUTO 1.28 K/mm3 (0.16-1.47); MONOCYTES PERCENT AUTO 7 % (4-13); Mean Corpuscular HGB 30.8 pg (26.0-34.0); Mean Corpuscular HGB Conc 33.9 g/dL (31.5-36.5); Mean Corpuscular Volume 91 fL (80-100); Mean Platelet Volume 9.9 fL (9.1-12.4); NEUTROPHILS ABSOLUTE AUTO 13.61 K/mm3 (1.96-9.15); NEUTROPHILS PERCENT AUTO 77 % (41-73); Platelet Count 299 K/mm3 (150-400); RDW Coefficient Variation 19.2 % (11.7-14.2); RDW Standard Deviation 63.7 fL (35.1-46.3); Red Blood Cell Count 2.99 M/mm3 (3.80-5.20); White Blood Cell Count 17.76 K/mm3 (4.00-11.30)
[2023-10-30 14:09] VITALS: BP 94/58
[2023-10-30] MEDS ORDERED: CeFAZolin Sodium 2,000 MG in NS 100 ML IV ONE (15:25)
--- NOTE | 2023-10-30 16:03 | NUR ---
SHIFT SUMMARY NO ACUTE CHANGES TODAY. VSS. PT AARON REG DIET. DENIES N/V. REPORTS FLATUS. INDEP WITH AMBULATION. VOIDING WITHOUT DIFFICULTY. SCANT VAGINAL BLEEDING. LAP SITES TO ABD REMAIN CDI. PAIN CONTROLLED WITH ORAL PAIN MEDICATION. POSSIBLE D/C THIS EVENING. CALL LIGHT WITHIN REACH.
[2023-10-30] MEDS ORDERED: Cefazolin 2000MG/Dextrose,ISO 50 ML IV SCH (18:10)
[2023-10-30 20:02] VITALS: BP 86/58
[2023-10-30] MEDS ORDERED: Calcium Carbonate 500 MG Tab Chew PO PRN (23:10)
[2023-10-30] MEDS ORDERED: Pantoprazole Sodium 40 MG Injection IV ONE (23:20)
[2023-10-31] MEDS ORDERED: CeFAZolin Sodium 2,000 MG in NS 100 ML IV SCH
[2023-10-31 04:46] VITALS: BP 89/54
[2023-10-31 05:13] LABS: BASOPHILS PERCENT AUTO 1 % (0-2); EOSINOPHILS ABSOLUTE AUTO 0.16 K/mm3 (0.00-0.68); EOSINOPHILS PERCENT AUTO 1 % (0-6); Hematocrit 24.6 % (33.0-51.0); Hemoglobin 8.3 g/dL (11.5-16.0); IMMATURE GRAN ABSOLUTE AUTO 0.16 K/mm3 (0.00-0.10); IMMATURE GRAN PERCENT AUTO 1 % (0-1); LYMPHOCYTES ABSOLUTE AUTO 3.74 K/mm3 (0.84-5.20); LYMPHOCYTES PERCENT AUTO 32 % (21-46); MONOCYTES PERCENT AUTO 6 % (4-13); Mean Corpuscular HGB 31.2 pg (26.0-34.0); Mean Corpuscular HGB Conc 33.7 g/dL (31.5-36.5); Mean Corpuscular Volume 93 fL (80-100); Mean Platelet Volume 9.8 fL (9.1-12.4); NEUTROPHILS ABSOLUTE AUTO 6.96 K/mm3 (1.96-9.15); NEUTROPHILS PERCENT AUTO 59 % (41-73); Platelet Count 255 K/mm3 (150-400); RDW Coefficient Variation 19.9 % (11.7-14.2); RDW Standard Deviation 66.5 fL (35.1-46.3); Red Blood Cell Count 2.66 M/mm3 (3.80-5.20); White Blood Cell Count 11.82 K/mm3 (4.00-11.30)
--- NOTE | 2023-10-31 05:50 | NUR ---
SHIFT SUMMARY POD2 LAP HYSTER. INCISIONS ARE C/D/I. PT SLEPT WELL T/O THE NIGHT. VSS, HYPOTENTION NOTED AT THE BEGINNING OF SHIFT BUT PT WAS ASYMPTOMATIC AND AMBULATING T/O THE HALLS AND HER ROOM. PERSISTANT HYPOTENTION NOTED THIS AM, PLAN TO RESTART IVF PER EMAR. PT REPORTS FEELING ASYMPTOMATIC BUT IS "TIRED. PT MEDICATED FOR PAIN PER EMAR. TOLLERATING PO INTAKE W/O N/V. VOIDING WELL. SCANT VAGINAL BLEEDING NOTED. OVERALL NO ACUTE EVENTS NOTED. PLAN FOR DR RAMIREZ TO EVALUATE THE PATIENT TODAY/
[2023-10-31 07:33] VITALS: BP 90/64
--- NOTE | 2023-10-31 14:03 | NUR ---
DISCHARGE POD 2 LAVH PT HAS HAD SCANT DRAINAGE ON STU PAD. SHE REMAINS HYPOTENSIVE BUT AMBULATES WELL. MINIMAL PAIN DURING SHIFT. PRESCRIPTIONS SENT WITH PATIENT. ALL INSTRUCTIONS GONE OVER WITH PATIENT. LAP SITES REMAIN CDI. ABDOMEN SOFT TO PALPATION. ESCORTED OUT VIA WHEELCHAIR.
[2023-11-02 19:32] LABS: FACTOR VIII, ACTIVITY 71 % (56-191); VON WILLEBRAND FACTOR, ACT RCF 84 % (51-215); VON WILLEBRAND FACTOR, ANTIGEN 51 % (52-214)
== END 2023-10-31 14:06 | disposition home or self-care (01) | DRG 742 ==
LOC: ORSCMMR 09:03 → ICUE 10:29 → ORSCMMR 10:29 → ORD 10:30 → ICUE 15:17 → SURS 19:50
PROVIDERS: ADMIT Obstetrics & Gynecology
PROC: 0UB77ZZ Excision of Bilateral Fallopian Tubes, Via Natural or Artificial Opening (ICD-10-PCS; 2023-10-29)
PROC: 0UT2FZZ Resection of Bilateral Ovaries, Via Natural or Artificial Opening With Percutaneous Endoscopic Assistance (ICD-10-PCS; 2023-10-29)
PROC: 0UT9FZZ Resection of Uterus, Via Natural or Artificial Opening With Percutaneous Endoscopic Assistance (ICD-10-PCS; principal; 2023-10-29 10:30)
DX: N92.0 Excessive and frequent menstruation with regular cycle (principal); E27.40 Unspecified adrenocortical insufficiency; N80.03 Adenomyosis of the uterus; N83.8 Other noninflammatory disorders of ovary, fallopian tube and broad ligament; F32.A Depression, unspecified; D64.9 Anemia, unspecified; F90.9 Attention-deficit hyperactivity disorder, unspecified type; E03.9 Hypothyroidism, unspecified; F17.210 Nicotine dependence, cigarettes, uncomplicated; Z79.890 Hormone replacement therapy; Z79.899 Other long term (current) drug therapy; Z98.51 Tubal ligation status; Z98.890 Other specified postprocedural states; K21.9 Gastro-esophageal reflux disease without esophagitis; G43.909 Migraine, unspecified, not intractable, without status migrainosus; E66.01 Morbid (severe) obesity due to excess calories; G51.0 Bell's palsy; Z68.38 Body mass index [BMI] 38.0-38.9, adult; E28.2 Polycystic ovarian syndrome; Z87.19 Personal history of other diseases of the digestive system
CPT/HCPCS: 36415; 36430; 85025; 85240; 85245; 85246; 85576; 86850; 86900; 86901; 88307; 94762; A9270; J0171; J0690; J1100; J2405; J2470; J2704; J3010; J7120; P9037; P9059

== ENCOUNTER 2023-11-08 14:30 | Emergency (ER) | payer BC ==
[~2023-11-08] VITALS: Ht 160 cm; Wt 90.7 kg
[~2023-11-08 14:30] MED LIST changes: -CeFAZolin Sodium 2,000 MG in NS 100 ML IV SCH; -Lactated Ringer's 1,000 ML IV SCH
[2023-11-08 15:04] LABS: BASOPHILS ABSOLUTE AUTO 0.11 K/mm3 (0.00-0.23); BASOPHILS PERCENT AUTO 1 % (0-2); EOSINOPHILS ABSOLUTE AUTO 0.37 K/mm3 (0.00-0.68); EOSINOPHILS PERCENT AUTO 4 % (0-6); Hematocrit 32.7 % (33.0-51.0); Hemoglobin 10.8 g/dL (11.5-16.0); IMMATURE GRAN ABSOLUTE AUTO 0.15 K/mm3 (0.00-0.10); IMMATURE GRAN PERCENT AUTO 2 % (0-1); LYMPHOCYTES ABSOLUTE AUTO 2.81 K/mm3 (0.84-5.20); LYMPHOCYTES PERCENT AUTO 31 % (21-46); MONOCYTES PERCENT AUTO 9 % (4-13); Mean Corpuscular HGB 30.9 pg (26.0-34.0); Mean Corpuscular Volume 94 fL (80-100); Mean Platelet Volume 8.6 fL (9.1-12.4); NEUTROPHILS PERCENT AUTO 53 % (41-73); Platelet Count 310 K/mm3 (150-400); RDW Coefficient Variation 19.4 % (11.7-14.2); RDW Standard Deviation 66.7 fL (35.1-46.3); Red Blood Cell Count 3.49 M/mm3 (3.80-5.20); White Blood Cell Count 9.04 K/mm3 (4.00-11.30)
[2023-11-08 15:28] LABS: Albumin, Blood 3.3 g/dL (3.4-5.0); Albumin/Globulin Ratio 0.9 (0.8-1.8); Bilirubin, Total 0.3 mg/dL (0.1-1.0); Bun/Creatinine Ratio 15.4 (12.0-20.0); Calcium, Blood 8.6 mg/dL (8.5-10.1); Creatinine, Blood 0.65 mg/dL (0.40-1.00); Globulin, Blood 3.7 g/dL (2.2-4.0); Potassium, Blood 3.6 mmol/L (3.5-5.5)
[2023-11-08] MEDS ORDERED: IBU800 M1 PO (16:40)
[2023-11-08] MEDS ORDERED: LEVOTHYROXINE112 M18 PO (16:40)
[2023-11-08] MEDS ORDERED: NS 1,000 ML IV SCH (17:05)
[2023-11-08 17:48] LABS: Influenza A, PCR NEGATIVE (NEGATIVE); Influenza B, PCR NEGATIVE (NEGATIVE); Resp Syncytial Virus, PCR NEGATIVE (NEGATIVE); SARS-Cov-2 (COVID-19) PCR, MMC NEGATIVE (NEGATIVE)
[2023-11-08 18:33] VITALS: BP 119/76
== END 2023-11-08 18:34 | disposition home or self-care (01) ==
LOC: ER 14:30
PROVIDERS: Physician Assistant; Student in an Organized Health Care Education/Training Program
DX: R53.83 Other fatigue (principal); E03.9 Hypothyroidism, unspecified; G43.909 Migraine, unspecified, not intractable, without status migrainosus; Z79.899 Other long term (current) drug therapy; Z88.8 Allergy status to other drugs, medicaments and biological substances
CPT/HCPCS: 0241U; 80053; 85025; 96360; 99283-25; J7030

== ENCOUNTER → 2024-02-18 | Outpatient (CLI) | payer BC ==
[~2024-02-18] MED LIST changes: +IBU800 M1 PO; +LEVOTHYROXINE112 M18 PO
[2024-02-18 16:54] LABS: Influenza A, PCR NEGATIVE (NEGATIVE); Influenza B, PCR NEGATIVE (NEGATIVE); Resp Syncytial Virus, PCR NEGATIVE (NEGATIVE); SARS-Cov-2 (COVID-19) PCR, MMC NEGATIVE (NEGATIVE)
== END ==
LOC: LAB SHORT 15:25 → LAB 15:25
PROVIDERS: Nurse Practitioner Family
DX: R05.9 Cough, unspecified (principal)
CPT/HCPCS: 0241U

== ENCOUNTER 2024-03-29 01:25 | Day surgery (SDC) | payer BC ==
[~2024-03-29 01:25] MED LIST changes: +EUTHYROX175 MCG PO; -LEVOTHYROXINE112 M18 PO
[2024-03-29] MEDS ORDERED: Cosyntropin 0.25 MG / ML 1ML Vial IM SCH (08:30)
[2024-03-29 09:12] VITALS: BP 98/59
== END 2024-03-29 10:25 | disposition home or self-care (01) ==
LOC: ATC 01:25
DX: R94.7 Abnormal results of other endocrine function studies (principal); E89.0 Postprocedural hypothyroidism; M79.7 Fibromyalgia; F17.210 Nicotine dependence, cigarettes, uncomplicated; E66.9 Obesity, unspecified; Z68.38 Body mass index [BMI] 38.0-38.9, adult; Z79.890 Hormone replacement therapy; Z79.899 Other long term (current) drug therapy; Z88.8 Allergy status to other drugs, medicaments and biological substances; Z90.710 Acquired absence of both cervix and uterus
CPT/HCPCS: 36415; 80400; 82533; 96372; J0834

== ENCOUNTER → 2024-05-30 | Outpatient (CLI) | payer BC ==
[2024-05-30 13:28] LABS: Appearance, Urine Clear (Clear); Bilirubin, Urine Neg (Neg); Blood, Urine 2+ (Neg); Color, Urine Yellow (P-Yellow); Glucose Qualitative, Urine Neg (Neg); Ketones, Urine Neg (Neg); Leukocyte Esterase, Urine Neg (Neg); Nitrite, Urine Neg (Neg); Protein, Urine 1+ (Neg); Specific Gravity, Urine 1.025 (1.003-1.022); Urobilinogen, Urine NORM (Normal)
[2024-05-30 13:59] LABS: Amorphous Light (0-Heavy); Bacteria Few /hpf; Calcium Oxalate Crystals Few /hpf; Mucus Light (0-Heavy); Squamous Epithelial Cells Mod /hpf (Few); White Blood Cells, Urine 0-2 /hpf (0-5)
== END ==
LOC: LAB 09:00 → LAB SHORT 09:00
PROVIDERS: Registered Nurse
DX: R30.0 Dysuria (principal)
CPT/HCPCS: 81001

== ENCOUNTER 2024-09-08 20:29 | Emergency (ER) | payer SELFPAY ==
[~2024-09-08] VITALS: Ht 160 cm; Wt 95.2 kg
[~2024-09-08 20:29] MED LIST changes: +TAMS.4ER PO
[2024-09-08 21:14] LABS: BASOPHILS ABSOLUTE AUTO 0.10 K/mm3 (0.00-0.23); BASOPHILS PERCENT AUTO 1 % (0-2); EOSINOPHILS ABSOLUTE AUTO 0.18 K/mm3 (0.00-0.68); EOSINOPHILS PERCENT AUTO 2 % (0-6); Hematocrit 38.3 % (33.0-51.0); Hemoglobin 13.3 g/dL (11.5-16.0); IMMATURE GRAN ABSOLUTE AUTO 0.04 K/mm3 (0.00-0.10); IMMATURE GRAN PERCENT AUTO 0 % (0-1); LYMPHOCYTES ABSOLUTE AUTO 2.76 K/mm3 (0.84-5.20); LYMPHOCYTES PERCENT AUTO 25 % (21-46); MONOCYTES ABSOLUTE AUTO 0.71 K/mm3 (0.16-1.47); MONOCYTES PERCENT AUTO 6 % (4-13); Mean Corpuscular HGB Conc 34.7 g/dL (31.5-36.5); Mean Corpuscular Volume 90 fL (80-100); NEUTROPHILS ABSOLUTE AUTO 7.27 K/mm3 (1.96-9.15); NEUTROPHILS PERCENT AUTO 66 % (41-73); NRBC ABSOLUTE 0.00 K/mm3 (0.00-0.02); NRBC Auto 0.0 /100 WBC (0.0-0.2); Platelet Count 309 K/mm3 (150-400); RDW Coefficient Variation 12.7 % (11.7-14.2); RDW Standard Deviation 41.5 fL (35.1-46.3)
[2024-09-08 21:46] LABS: Alanine Aminotransfer (ALT/SGP 24.0 U/L (12-78); Albumin, Blood 3.6 g/dL (3.4-5.0); Albumin/Globulin Ratio 0.9 (0.8-1.8); Anion Gap 8.0 mmol/L (3-11); Aspartate Aminotrans (AST/SGOT 17.0 U/L (12-37); Bilirubin, Total 0.5 mg/dL (0.1-1.0); Blood Urea Nitrogen 11.0 mg/dL (8-24); CO2, Blood 23.0 mmol/L (21-32); Calcium, Blood 8.8 mg/dL (8.5-10.1); Chloride, Blood 110.0 mmol/L (98-108); Creatinine, Blood 0.65 mg/dL (0.40-1.00); Globulin, Blood 4.1 g/dL (2.2-4.0); Glucose, Blood 113.0 mg/dL (70-99); Potassium, Blood 3.3 mmol/L (3.5-5.5); Sodium, Blood 138.0 mmol/L (136-145); Total Protein, Blood 7.7 g/dL (6.4-8.2)
[2024-09-09] MEDS ORDERED: PANT40 PO (00:51)
[2024-09-09] MEDS ORDERED: Ondansetron HCl 2 MG / ML 2ML Vial IV ONE (01:15)
[2024-09-09 01:27] LABS: Source, Urine Clean Catch
[2024-09-09 01:31] LABS: Bilirubin, Urine Neg (Neg); Glucose Qualitative, Urine Neg (Neg); Ketones, Urine 1+ (Neg); Leukocyte Esterase, Urine Neg (Neg); Protein, Urine 1+ (Neg); Specific Gravity, Urine 1.025 (1.003-1.022); Urobilinogen, Urine NORM (Normal)
[2024-09-09 01:49] LABS: Color, Urine Yellow (P-Yellow)
[2024-09-09 01:51] LABS: White Blood Cells, Urine 0-2 /hpf (0-5)
[2024-09-09 03:00] VITALS: BP 97/66
== END 2024-09-09 03:47 | disposition home or self-care (01) ==
LOC: ER 20:29
PROVIDERS: Student in an Organized Health Care Education/Training Program
DX: R07.9 Chest pain, unspecified (principal); G43.909 Migraine, unspecified, not intractable, without status migrainosus; E03.9 Hypothyroidism, unspecified; F17.210 Nicotine dependence, cigarettes, uncomplicated; Z79.899 Other long term (current) drug therapy; Z88.8 Allergy status to other drugs, medicaments and biological substances
CPT/HCPCS: 71046; 80053; 81001; 83690; 84484; 85025; 85379; 93005; 93010; 96374; 99284-25; J2405